=== PATIENT | female | born 1955 | race Caucasian/White ===

== ENCOUNTER → 2017-09-16 | Outpatient (CLI) | payer BC ==
--- NOTE | 2017-09-17 14:09 | MM ---
Reason for exam: screening (asymptomatic). Last mammogram was performed 1 year and 5 months ago. History: Patient is postmenopausal and history of other cancer. Family history of breast cancer in paternal cousin. Benign excisional biopsy of the right breast, 1979. Physical Findings: A clinical breast exam by your physician is recommended on an annual basis and results should be correlated with mammographic findings. MG 3D Screening Mammo W/Cad Bilateral CC and MLO view(s) were taken. Prior study comparison: April 15, 2016, bilateral MG screening mammo w CAD. November 30, 2014, bilateral MG screening mammo w CAD. The breast tissue is heterogeneously dense. This may lower the sensitivity of mammography. Asymmetric density far posterior central left MLO view is unchanged. No significant changes when compared with prior studies. ASSESSMENT: Negative, BI-RAD 1 RECOMMENDATION: Routine screening mammogram of both breasts in 1 year.
== END | disposition home or self-care (01) ==
LOC: RADMAMWWP 16:55
PROVIDERS: ATTEND Family Medicine
DX: Z12.31 Encounter for screening mammogram for malignant neoplasm of breast (principal)
CPT/HCPCS: 77063; 77067

== ENCOUNTER → 2017-10-28 | Outpatient (CLI) | payer BC ==
[2017-10-28 15:00] VITALS: BP 132/85; PULSE 98; RESP 18; TEMP 98.1; BMI 20.4
--- NOTE | 2017-10-28 16:24 | P.HPOB ---
History of Present Illness H&P Date: 10/28/17 Chief Complaint: The patient is here for her routine gynecologic exam. This is a 62-year-old with an LMP of 2009. It is been about 3 years since her last pelvic exam. She previously saw Dr. Cid. She states she has noticed infrequent lower abdominal pains over the past few months. She describes them as a dull ache. They can last up to a half a day and seems to be below the umbilicus. The pains do not seem to be associated with any activity. She is otherwise without complaints and denies any postmenopausal bleeding. Review of Systems She is getting about 7 pounds over the last 2 years. She denies respiratory work G.I. problems. Cardiac: occasional palpitations and she does have an appointment at [facility] for evaluation. 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 She was also told she may have uterine fibroids. She has had 3 vaginal deliveries and 1 spontaneous . History of Any Multi-Drug Resistant Organisms: None Reported Past Surgical History: Orthopedic Surgery (Wrist surgery), Tonsillectomy Additional Past Surgical History / Comment(s): wrist. 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 - Past Family History Father Family Medical History: Myocardial Infarction ([place]) Mother Family Medical History: No Reported History Medications and Allergies Home Medications Medication Instructions Recorded Confirmed Type Calcium Carbonate/Vitamin D3 1 each PO DAILY 03/09/15 10/28/17 History [Calcium 600 + Vit D Tablet] Multivitamins, Thera [Theragran] 1 each PO DAILY 03/09/15 10/28/17 History Ramipril [Ramipril] 5 mg PO QAM 03/09/15 10/28/17 History Vit A/Vit C/Vit E/Zinc/Copper 1 cap PO DAILY 09/03/15 04/24/18 History [ICAPS SOFTGEL] Allergies Allergy/AdvReac Type Severity Reaction Status Date / Time Sulfa (Sulfonamide Allergy Unknown Verified 10/28/17 14:52 Antibiotics) Exam - Vital Signs Vital signs: Vital Signs Temp Pulse Resp BP 10/28/17 14:52 98.1 F 98 18 132/85 Intake and Output 10/28/17 10/28/17 10/28/17 06:59 14:59 22:59 Other: Weight 53.977 kg Height 5'4", BMI 20.4. This is a well-developed well-nourished white female who is alert and oriented times 3 in no acute distress. HEENT: Within normal limits. NECK: Supple without mass or thyromegaly. CHEST AND LUNGS: Clear to auscultation. HEART: Regular rate and rhythm. BREASTS: Are without mass or discharge. AXILLARY EXAM: Negative for adenopathy. BACK: Negative for CVA tenderness. ABDOMEN: Soft, nontender, without palpable masses. PELVIC EXAM: Normal external genitalia with mild atrophy. Cervix and vagina appear normal with mild to moderate atrophy. The cervix is somewhat stenotic. There is no unusual discharge. There is no evidence of prolapse. The uterus is midposition, nongravid size and nontender. There are no palpable adnexal masses or tenderness. RECTAL EXAM: rectovaginal exam is negative for mass or tenderness and is negative for occult blood. EXTREMITIES: Nontender. IMPRESSION: 1. 62-year-old menopausal female with normal gynecologic exam. 2. Intermittent low abdominal pains near the umbilicus Without any significant physical findings at this time. PLAN: 1. Pap smear was performed. 2. Self breast awareness was discussed. 3. She had a normal mammogram on 09/16/2017 which was negative. She will repeat this in one year. 4. Pelvic ultrasound will be scheduled. 5. Osteoporosis prevention was discussed. She states she is due for a bone density test in order slip was given the patient for this 6. She will return in one year.
== END | disposition home or self-care (01) ==
LOC: WWCWWP 14:03
PROVIDERS: ATTEND Obstetrics & Gynecology
DX: Z53.9 Procedure and treatment not carried out, unspecified reason (principal)

== ENCOUNTER → 2017-11-20 | Outpatient (CLI) | payer BC ==
[2017-11-20 11:33] LABS: HCT 36.1 % (34.0-46.0); HGB 12.3 gm/dL (11.4-16.0); MCH 30.9 pg (25.0-35.0); MCHC 34.1 g/dL (31.0-37.0); MCV 90.7 fL (80.0-100.0); Mean Platelet Volume 6.8; Platelet Count 256 k/uL (150-450); RBC 3.98 m/uL (3.80-5.40); RDW 13.5 % (11.5-15.5); WBC 5.4 k/uL (3.8-10.6)
[2017-11-20 11:56] LABS: ALT 49 U/L (9-52); AST 48 U/L (14-36); Cholesterol 170 mg/dL (<200); HDL Cholesterol 90 mg/dL (40-60); LDL Cholesterol,Calculated 65 mg/dL (0-99); Triglycerides 73 mg/dL (<150)
== END | disposition home or self-care (01) ==
LOC: LABWHC1 10:46
PROVIDERS: ATTEND Internal Medicine Interventional Cardiology
DX: E78.2 Mixed hyperlipidemia (principal); D64.9 Anemia, unspecified
CPT/HCPCS: 36415; 80061; 84450; 84460; 85027

== ENCOUNTER → 2017-11-20 | Outpatient (CLI) | payer BC ==
--- NOTE | 2017-11-20 11:15 | US ---
EXAMINATION TYPE: US pelvic complete DATE OF EXAM: 11/20/2017 COMPARISON: NONE CLINICAL HISTORY: R10 ABD PAIN/Z78.0 POSTMENO STATUS ASYMPTOMATIC. Right lower quadrant pain on and o ff TECHNIQUE: . Transabdominal sonographic images of the pelvis were acquired. Date of LMP: About 9 years ago EXAM MEASUREMENTS: Uterus: 5.5 x 2.2 x 3.0 cm Endometrial Stripe: 0.3 cm Right Ovary: 1.5 x 1.0 x 1.4 cm Left Ovary: 1.6 x 0.8 x 1.3 cm 1. Uterus: Anteverted wnl 2. Endometrium: wnl 3. Right Ovary: wnl 4. Left Ovary: wnl 5. Bilateral Adnexa: wnl 6. Posterior cul-de-sac: wnl Transabdominal ultrasound evaluation of pelvis shows no suspicious abnormality. IMPRESSION: As above.
--- NOTE | 2017-11-21 10:20 | BD ---
EXAMINATION TYPE: Axial Bone Density DATE OF EXAM: 11/20/2017 COMPARISON: NONE CLINICAL HISTORY: Postmenopausal female. Osteoporosis screening. Height: 63.5 Weight: 119 FRAX RISK QUESTIONS: Alcohol (3 or more units per day): no Family History (Parent hip fracture): mother Glucocorticoids (More than 3mos): no (Ex: prednisone, prednisolone, methylprednisolone, dexamethasone, and hydrocortisone). History of Fracture in Adulthood: yes, pelvis Secondary Osteoporosis: 1. Type 1 Diabetes: no 2. Hyperthyroidism: no 3. Menopause before 45: no 4. Malnutrition: no 5. Chronic liver disease: no Rheumatoid Arthritis: no Current Tobacco Use: no RISK FACTORS HISTORY OF: Surgery to Surgery Wrist (left): yes When: childhood injury -non fracture Family History of Osteoporosis: yes, mother Active: yes Diet low in dairy products/other sources of calcium: no Postmenopausal woman: yes Take estrogen and/or progesterone medications: no Lost more than 2 inches in height since high school: no Frequent falls: no Poor Health: no Hyperparathyroidism: no Adrenal Insufficiency: no MEDICATIONS: Prednisone or other steroids: no Thyroid Medications: no Osteoporosis Medications: not now Which medication: Fosamax & another How Long: unsure Additional Medications: blood pressure meds, cholesterol meds Additional History: myotonic dystrophy, left hip "nerve pain" x 2 months EXAM MEASUREMENTS: Bone mineral densitometry was performed using the [employer]. Bone mineral density as measured about the Lumbar spine is: ----- L1-L4(G/cm2): 1.285 T Score Values are as follows: ----- L2: 0.4 ----- L3: 1.3 ----- L4: 1.0 ----- L1-L4: 0.9 Bone mineral density has: Increased 4.0% since study of: 10/24/2011 Bone mineral density about the R hip (g/cm2): 0.941 Bone mineral density about the L hip (g/cm2): 0.896 T Score values are as follows: -----R Neck: -0.7 -----L Neck: -1.0 -----R Total: -0.7 -----L Total: -0.7 Bone mineral density has: Decreased -4.0% since study of: 10/24/2011 IMPRESSION: Normal (Values between +1 and -1 indicate normal bone mass). Values approach osteopenia with regards to the left femur. Consider repeating this study in 5 years or sooner if there is some new clinical indication. NOTE: T-SCORE=SD OF THE YOUNG ADULT MEAN.
== END | disposition home or self-care (01) ==
LOC: RADUSWWP 09:35
PROVIDERS: ATTEND Obstetrics & Gynecology
DX: R10.13 Epigastric pain (principal); M85.852 Other specified disorders of bone density and structure, left thigh; Z78.0 Asymptomatic menopausal state
CPT/HCPCS: 76856; 77080

== ENCOUNTER → 2018-10-28 | Outpatient (CLI) | payer MEDICARE, OTHER ==
[2018-10-28 11:40] VITALS: BP 122/76; PULSE 64; RESP 16; TEMP 98.1; BMI 21.2
--- NOTE | 2018-10-28 12:46 | P.HPOB ---
History of Present Illness H&P Date: 10/28/18 Chief Complaint: The patient is here for her routine gynecologic exam and ma mmogram. This is a 63-year-old with an LMP of 2009. The patient has pelvic and urinary complaints. She states over the last few months she has noticed urinary frequency and smaller amounts of urine when she avoids. She typically gets up 2 times per night to urinate. She is also feeling and achy pain in the area of the bladder which seems to be greater after voiding. She has taken cranberry supplements which has helped slightly. She also has been experiencing abdominal bloating. She was treated for a UTI about 5 months ago. She does experiencing occasional small urinary leakage with coughing. Review of Systems She has been about 4 pounds over the last year. She denies respiratory, cardiac, or G.I. problems. : see the HPI. 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 She was also told she may have uterine fibroids. She has had 3 vaginal deliveries and 1 spontaneous . History of Any Multi-Drug Resistant Organisms: None Reported Past Surgical History: Orthopedic Surgery, Tonsillectomy Additional Past Surgical History / Comment(s): wrist. 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 - Past Family History Father Family Medical History: Myocardial Infarction ([place]) Mother Family Medical History: No Reported History Medications and Allergies Home Medications Medication Instructions Recorded Confirmed Type Calcium Carbonate/Vitamin D3 1 each PO DAILY 03/09/15 10/28/18 History [Calcium 600 + Vit D Tablet] Multivitamins, Thera [Theragran] 1 each PO DAILY 03/09/15 10/28/18 History Ramipril 5 mg PO QAM 03/09/15 10/28/18 History Vit A/Vit C/Vit E/Zinc/Copper 1 cap PO DAILY 03/09/15 10/28/18 History [ICAPS SOFTGEL] Atorvastatin [Lipitor] 40 mg PO HS 10/28/18 10/28/18 History Allergies Allergy/AdvReac Type Severity Reaction Status Date / Time Sulfa (Sulfonamide Allergy Unknown Verified 10/28/17 14:52 Antibiotics) Exam Vital Signs Temp Pulse Resp BP Pulse Ox 10/28/18 11:00 98.1 F 64 16 122/76 96 Intake and Output 10/27/18 10/28/18 10/28/18 22:59 06:59 14:59 Other: Weight 56.245 kg Height 5'4", weight 124 pounds, BMI 21.3. This is a well-developed well-nourished white female who is alert and oriented times 3 in no acute distress. HEENT: Within normal limits. NECK: Supple without mass or thyromegaly. CHEST AND LUNGS: Clear to auscultation. HEART: Regular rate and rhythm. BREASTS: Are without mass or discharge. AXILLARY EXAM: Negative for adenopathy. BACK: Negative for CVA tenderness. ABDOMEN: Soft, there is mild suprapubic tenderness with no rebound tenderness, without palpable masses. The abdomen is minimally distended. PELVIC EXAM: Normal external genitalia with mild atrophy. Cervix and vagina appear normal with mild atrophy. There is no unusual discharge. There is no evidence of prolapse. The uterus is midposition, nongravid size and nontender. There are no palpable adnexal masses or tenderness. There is mild tenderness in the area of the bladder. She states palpating the bladder makes her feel like she has to void even though she did not feel like she had devoid just prior to the exam. RECTAL EXAM: rectovaginal exam is negative for mass or tenderness and is negative for occult blood. EXTREMITIES: Nontender. IMPRESSION: 1. 63-year-old menopausal female with urinary frequency and intermittent urinary urgency. 2. Pelvic pain in the area of the bladder. Possible UTI. 3. Abdominal bloating. PLAN: 1. Pap smear was deferred since she had a normal one on 10/28/2017. 2. Self breast awareness was discussed with the patient. 3. Screening mammogram will be done today. 4. The patient will be scheduled for a pelvic ultrasound. 5. Clean catch urinalysis and culture with sensitivity will be obtained today. 6. The patient had a normal bone density test done on 11/20/2017 and we will plan on repeating this approximately 5 years after her last one. 7. I have recommended that she tried to empty her bladder as completely as possible with relaxation and giving herself more time to avoid. She will try to avoid bearing down to empty the bladder. 7.She was advised to return in one year for her annual well woman exam.
[2018-10-28 14:12] LABS: Appearance,Urine Clear (Clear); Bilirubin,Urine Negative (Negative); Blood,Urine Negative (Negative); Color,Urine Yellow; Glucose,Urine (UA) Negative (Negative); Ketones,Urine Negative (Negative); Leukocyte Esterase,Urine Negative (Negative); Nitrite,Urine Negative (Negative); Protein,Urine Negative (Negative); Specific Gravity,Urine 1.007 (1.001-1.035); Urobilinogen,Urine <2.0 mg/dL (<2.0)
--- NOTE | 2018-10-30 08:25 | MM ---
Reason for exam: screening (asymptomatic). Last mammogram was performed 1 year and 1 month ago. History: Patient is postmenopausal and history of other cancer. Family history of breast cancer in paternal cousin. Benign excisional biopsy of the right breast, 1979. Physical Findings: A clinical breast exam by your physician is recommended on an annual basis and results should be correlated with mammographic findings. MG 3D Screening Mammo W/Cad Bilateral CC and MLO view(s) were taken. Prior study comparison: September 16, 2017, bilateral MG 3d screening mammo w/cad. April 15, 2016, bilateral MG screening mammo w CAD. The breast tissue is heterogeneously dense. This may lower the sensitivity of mammography. No significant changes when compared with prior studies. ASSESSMENT: Negative, BI-RAD 1 RECOMMENDATION: Routine screening mammogram of both breasts in 1 year.
--- NOTE | 2018-11-03 17:59 | P.PN ---
Progress Note - Text Progress Note Date: 11/03/18 OUTPATIENT FOLLOW-UP NOTE TEST(S)/RESULTS: test results from 10/28/2018 include benign mammogram and negative you a with urine culture showing small normal genital sharon contamination. METHOD OF NOTIFICATION: she was notified by phone. PATIENT COMMENTS: DIAGNOSIS: urine negative for infection and benign mammogram. DISCUSSION: the patient is planning on having her pelvic ultrasound done in [facility]. PLAN: await pelvic ultrasound. She will also return in one year and PRN.
== END | disposition home or self-care (01) ==
LOC: WWCWWP 10:50
PROVIDERS: ATTEND Obstetrics & Gynecology
DX: Z12.31 Encounter for screening mammogram for malignant neoplasm of breast (principal); R35.0 Frequency of micturition; R10.2 Pelvic and perineal pain
CPT/HCPCS: 77063; 77067; 81003; 87086

== ENCOUNTER → 2018-11-10 | Outpatient (CLI) | payer MEDICARE, OTHER ==
--- NOTE | 2018-11-10 16:32 | US ---
EXAMINATION TYPE: US pelvic complete DATE OF EXAM: 11/10/2018 COMPARISON: US CLINICAL HISTORY: R10.2 Pelvic and perineal pain. Patient c/o pelvic bloating TECHNIQUE: Transvaginal (TV) and Transabdominal (TA) . Transabdominal sonographic images of the pel vis were acquired. Transvaginal sonographic images were medically necessary to better assess the fol lowing anatomy: ovaries and endometrium Date of LMP: approximately age 63 EXAM MEASUREMENTS: Uterus: 6.3 x 3.7 x 2.5 cm Endometrial Stripe: 1.2 cm Right Ovary: not seen TA or TV US Left Ovary: 3.2 x 2.0 x 1.4 cm US exam is technically limited for adnexal assessment due to overlying bowel gas. 1. Uterus: Anteverted; multiple small Nabothian cysts in cervix 2. Endometrium: abnormally thickened with cyst seen within = 0.4 x 0.4 x 0.3cm 3. Right Ovary: not seen 4. Left Ovary: small follicles and better seen TA US 5. Bilateral Adnexa: bowel peristalsing noted 6. Posterior cul-de-sac: wnl IMPRESSION: 1. Thickening of the endometrium currently measuring 1.2 cm.
== END | disposition home or self-care (01) ==
LOC: RADUSWWP 10:57
PROVIDERS: ATTEND Obstetrics & Gynecology
DX: R93.89 Abnormal findings on diagnostic imaging of other specified body structures (principal); R14.0 Abdominal distension (gaseous)
CPT/HCPCS: 76830; 76856

== ENCOUNTER → 2018-11-25 | Day surgery (SDC) | payer MEDICARE, OTHER ==
[2018-11-25 12:37] VITALS: BP 117/77; PULSE 71; RESP 18; TEMP 97.3; BMI 21.2
--- NOTE | 2018-11-25 13:59 | P.PCN ---
Date of Procedure: 11/25/18 Preoperative Diagnosis: Postmenopausal endometrial thickening Postoperative Diagnosis: Same, failed endometrial biopsy Procedure(s) Performed: Endometrial biopsy(failed) Anesthesia: none Surgeon: Isauro Barth Estimated Blood Loss (ml): 0 Condition: stable Disposition: same day Indications for Procedure: This was a 63-year-old menopausal female who underwent a pelvic ultrasound on 11/10/2018 for abdominal bloating. The endometrial stripe was felt to be thickened at 1.2 cm. She denies any gross postmenopausal bleeding, however, she states she has had in intermittent slightly brownish discharge for many years. Operative Findings: The uterus is mid positioned, non-gravid size and nontender. There are no palpable adnexal masses or tenderness. The cervix appears moderately atrophic with a stenotic cervix. The endometrial biopsy instrument was unable to pass into the endometrial cavity secondary to cervical stenosis. Description of Procedure: The procedure was discussed with the patient and we reviewed possible risks and complications. All of her questions were answered. The patient was placed in the lithotomy position. A speculum was inserted into the vagina. The cervix and vagina were prepped with Betadine solution. And Allys Clamp was used to grasp the anterior lip of the cervix. The 3 mm endometrial biopsy instrument could not pass through the cervical os secondary to cervical stenosis. A cyto-brush could be inserted into the cervical os, but without active dilation the endometrial biopsy instrument could not be inserted. After several attempts with different clamp locations, the procedure was aborted. I didn't want to use undue force which could increase the risk for complications. The patient tolerated the procedure attempt. The postprocedure blood pressure was 136/79, pulse 76, temperature 98.1. Pulse oximeter 98% respiratory rate 18. The pelvic ultrasounds from one year ago (ET 3mm) and 11/10/2018 (ET 12 mm) were reviewed with Dr. Sorto, the radiologist. He was not sure that the most recent ultrasound was accurately measuring the endometrial stripe and suggested additional ultrasound views. This will be done today. Is it seems that there is significant endometrial thickening by the additional ultrasound views today, she will be referred for possible hysteroscopy and D&C.
--- NOTE | 2018-11-25 14:14 | P.PN ---
Progress Note - Text Progress Note Date: 11/25/18 Additional pelvic ultrasound views were obtained today. The preliminary report indicates that the endometrium does not appear thickened and may have been artifact from a small fibroid. This was discussed with the patient. No additional testing will be needed at this time. She was instructed to call if she has any problems including postmenopausal bleeding or unusual pain. We will await the addendum ultrasound report.
== END ==
LOC: WWCWWP 12:25
PROVIDERS: ATTEND Obstetrics & Gynecology
DX: Z53.9 Procedure and treatment not carried out, unspecified reason (principal)

== ENCOUNTER → 2020-06-27 | Outpatient (CLI) | payer MEDICARE, OTHER ==
[2020-06-27 14:45] VITALS: BP 108/72; PULSE 77; RESP 18; TEMP 98
--- NOTE | 2020-06-27 18:03 | P.HPOB ---
History of Present Illness H&P Date: 06/27/20 Chief Complaint: The patient is here for her routine gynecologic exam and ma mmogram. This is a 64-year-old 013 with an LMP of 2009. The patient states she has been having GI symptoms including loose stools and bloating. She has been seeing a juice scaleman in [place]. She states she had a pelvic ultrasound done in February 2028. She states there were no significant findings. She has been experiencing rare low abdominal and pelvic pains which she states can be sharp. She states these have occurred about 3 or 4 times per year. The pain can be severe when it does happen. She is currently not experiencing this pain. She denies any urinary tract infection symptoms. Review of Systems She has lost about 6 pounds over the past year. She denies respiratory or cardiac problems. GI: Intermittent loose stools and abdominal bloating. She has been seeing a juice scaleman for this. 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 She was also told she may have uterine fibroids. She has had 3 vaginal deliveries and 1 spontaneous . History of Any Multi-Drug Resistant Organisms: None Reported Past Surgical History: Orthopedic Surgery, Tonsillectomy Additional Past Surgical History / Comment(s): wrist. 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 - Past Family History Father Family Medical History: Myocardial Infarction ([place]) Mother Family Medical History: No Reported History Medications and Allergies Home Medications Medication Instructions Recorded Confirmed Type Calcium Carbonate/Vitamin D3 1 each PO DAILY 03/09/15 06/27/20 History [Calcium 600 + Vit D Tablet] Multivitamins, Thera [Theragran] 1 each PO DAILY 03/09/15 06/27/20 History Ramipril 5 mg PO QAM 03/09/15 06/27/20 History Vit A/Vit C/Vit E/Zinc/Copper 1 cap PO DAILY 03/09/15 06/27/20 History [ICAPS SOFTGEL] Atorvastatin [Lipitor] 40 mg PO HS 10/28/18 06/27/20 History Allergies Allergy/AdvReac Type Severity Reaction Status Date / Time Sulfa (Sulfonamide Allergy Unknown Verified 06/27/20 14:33 Antibiotics) Exam Vital Signs Temp Pulse Resp BP Pulse Ox 06/27/20 14:40 98.0 F 77 18 108/72 97 Intake and Output 06/27/20 06/27/20 06/27/20 06:59 14:59 22:59 Other: Weight 53.524 kg Height 5 feet 4 inches, weight 118 pounds, BMI 20.3. This is a well-developed well-nourished white female who is alert and oriented times 3 in no acute distress. HEENT: Within normal limits. NECK: Supple without mass or thyromegaly. CHEST AND LUNGS: Clear to auscultation. HEART: Regular rate and rhythm. BREASTS: Are without mass or discharge. AXILLARY EXAM: Negative for adenopathy. BACK: Negative for CVA tenderness. ABDOMEN: Soft, nontender, without palpable masses. PELVIC EXAM: Normal external genitalia with mild atrophy. Cervix and vagina appear normal with mild atrophy. There is no unusual discharge. There is no evidence of prolapse. The uterus is midposition, nongravid size and nontender. There are no palpable adnexal masses or tenderness. RECTAL EXAM: Rectovaginal exam is negative for mass or tenderness and is negative for occult blood. EXTREMITIES: Nontender. IMPRESSION: 1. 64-year-old menopausal female with normal gynecologic exam. 2. Abdominal bloating with rare low abdominal pains with no significant physical findings at this time. She states she had a pelvic ultrasound done by her GI doctor for these and other GI symptoms in February of this year. Incomplete database. 3. Her abdominal symptoms most likely is GI in nature, especially if she had a negative ultrasound in February. PLAN: 1. Pap smear cotest was performed. 2. Self breast awareness was discussed with the patient. 3. Screening mammogram was done today. 4. We will obtain records of her pelvic ultrasound done in February of this year by her GI doctor in [place]. If the ultrasound was not a pelvic ultrasound and if it did not evaluate the gynecologic organs, consider getting a pelvic ultrasound. 5. Osteoporosis prevention was discussed. I have stressed the importance of adequate calcium, vitamin D and regular exercise. Recommended amounts of calcium and vitamin D were also discussed. 6. She was advised to return in one year for her annual well woman exam and as needed.
--- NOTE | 2020-06-28 11:56 | MM ---
Reason for exam: screening (asymptomatic). Last mammogram was performed 1 year and 8 months ago. History: Patient is postmenopausal and history of other cancer. Family history of breast cancer in paternal cousin. Benign excisional biopsy of the right breast, 1979. Physical Findings: A clinical breast exam by your physician is recommended on an annual basis and results should be correlated with mammographic findings. MG 3D Screening Mammo W/Cad Bilateral CC and MLO view(s) were taken. Prior study comparison: October 28, 2018, bilateral MG 3d screening mammo w/cad. September 16, 2017, bilateral MG 3d screening mammo w/cad. The breast tissue is heterogeneously dense. This may lower the sensitivity of mammography. There is no discrete abnormality. No significant changes when compared with prior studies. ASSESSMENT: Negative, BI-RAD 1 RECOMMENDATION: Routine screening mammogram of both breasts in 1 year.
--- NOTE | 2020-07-05 09:39 | P.PN ---
Progress Note - Text Progress Note Date: 07/05/20 OUTPATIENT FOLLOW-UP NOTE TEST(S)/RESULTS: test results from 06/27/2020 include negative, negative Pap smear cotest and benign mammogram. METHOD OF NOTIFICATION: the patient was notified by phone. PATIENT COMMENTS: the patient is happy to hear these results. The patient states previous Pap smears were done by Dr. Cid. DIAGNOSIS: negative Pap smear cotest and benign mammogram. DISCUSSION: I will review Dr. Cid's chart to determine if she has had adequate screening to possibly discontinue Pap smears. I have received the pelvic ultrasound done on 11/24/2019 at [facility] as ordered by her GI specialist. The pelvic ultrasound was unremarkable with an endometrial thickness of 2 mm and no evidence of adnexal masses. This was also reviewed with the patient. At this time I do not believe her infrequent abdominal pains are gynecologic in nature and she will follow up with her GI specialist in [place] for this. She states she had some type of scan of her abdomen as well in the past. PLAN: the patient is to return in one year for her annual well woman exam. She will follow up with her GI specialist for her abdominal pains.
== END | disposition home or self-care (01) ==
LOC: WWCWWP 13:57
PROVIDERS: ATTEND Obstetrics & Gynecology
DX: Z12.31 Encounter for screening mammogram for malignant neoplasm of breast (principal)
CPT/HCPCS: 77063; 77067

== ENCOUNTER → 2022-05-14 | Outpatient (CLI) | payer MEDICARE, OTHER ==
[2022-05-14 14:10] VITALS: BP 145/85; PULSE 76; RESP 17; TEMP 98.3
--- NOTE | 2022-05-14 15:01 | P.HPOB ---
History of Present Illness H&P Date: 05/14/22 Chief Complaint: The patient is here for her routine gynecologic exam. This is a 66-year-old 013 with an LMP of 2009. The patient states she has had a long history of intermittent abdominal pains that occur a few times per year. She believes they are occurring more often. In the past it was about 4 times year and now she thinks it is about 8 times a year. The pains tended to be in the low abdomen and can be severe at times with a burning type of sensation. She was told by her primary care doctor that she has blood in the urine and was advised to see a urologist. She has not yet seen the urologist for this. The episodes that she has continued typically last one or 2 hours. She has a bowel movement this seems to help with the discomfort. She also notices that voiding can help a little as well. She has experienced some urinary urgency even after voiding and occasional dysuria. She states she was not treated for a UTI when she was found to have blood in her urine. She previously saw a environmental engineering technician in [place] for these symptoms and he did not feel that it was GI in nature. Right now she is experiencing bladder discomfort, but not severe burning abdominal discomfort that she has had in the past. Review of Systems She has gained about 5 pounds over the past 2 years. She denies respiratory or cardiac problems. GI: See the HPI. Moving her bowels seems to help with the abdominal discomfort when it is there. Lately she has been moving her bowels less than once a day. 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 Macular hole. 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 She was also told she may have uterine fibroids. She has had 3 vaginal deliveries and 1 spontaneous . History of Any Multi-Drug Resistant Organisms: None Reported Past Surgical History: Orthopedic Surgery, Tonsillectomy Additional Past Surgical History / Comment(s): wrist. 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 - Past Family History Father Family Medical History: Myocardial Infarction (VT) Mother Family Medical History: No Reported History Medications and Allergies Home Medications Medication Instructions Recorded Confirmed Type Calcium Carbonate/Vitamin D3 1 each PO DAILY 03/09/15 05/14/22 History [Calcium 600 + Vit D Tablet] Multivitamins, Thera [Theragran] 1 each PO DAILY 03/09/15 05/14/22 History Ramipril 5 mg PO QAM 03/09/15 05/14/22 History Atorvastatin [Lipitor] 40 mg PO HS 10/28/18 05/14/22 History Allergies Allergy/AdvReac Type Severity Reaction Status Date / Time Sulfa (Sulfonamide Allergy Unknown Verified 05/14/22 13:56 Antibiotics) Exam Vital Signs Temp Pulse Resp BP Pulse Ox 05/14/22 13:57 98.3 F 76 17 145/85 99 Intake and Output 05/13/22 05/14/22 05/14/22 22:59 06:59 14:59 Other: Weight 55.792 kg Height 5 feet 4 inches, weight 123 pounds, BMI 21.1. This is a well-developed well-nourished white female who is alert and oriented times 3 in no acute distress. HEENT: Within normal limits. NECK: Supple without mass or thyromegaly. CHEST AND LUNGS: Clear to auscultation. HEART: Regular rate and rhythm. BREASTS: Are without mass or discharge. AXILLARY EXAM: Negative for adenopathy. BACK: Negative for CVA tenderness. ABDOMEN: Soft, nontender, without palpable masses. PELVIC EXAM: Normal external genitalia with mild to moderate atrophy. Cervix and vagina appear normal with mild atrophy. There is no unusual discharge. There is no evidence of prolapse. The uterus is midposition, nongravid size and nontender. There are no palpable adnexal masses or tenderness. RECTAL EXAM: rectovaginal exam is negative for mass or tenderness and is negative for occult blood. EXTREMITIES: Nontender. IMPRESSION: 1. 66-year-old menopausal female with intermittent low abdominal and pelvic pains without significant physical findings at this time. 2. Urinary symptoms consisting of occasional urinary urgency, occasional urinary dysuria and bladder discomfort 3. History of hematuria per the patient. PLAN: 1. Pap smears have been discontinued. 2. Self breast awareness was discussed with the patient. We have also discussed symptoms associated with inflammatory breast cancer. 3. Clean catch midstream urine will be obtained for a UA and culture with sensitivity. 4. Pelvic ultrasound was recommended. The order slip was given to the patient for this. If the ultrasound is unremarkable for a gynecologic cause for the pains, she will speak with her PCP for possible additional testing such as CT scan of the abdomen and pelvis. 5. We have discussed how her abdominal symptoms may not be gynecologic in nature. If the pelvic ultrasound is unremarkable. I will be more inclined to believe that her pains are more GI in nature based on her description. 6. I have recommended that she keep her appointment with the urologist that her PCP is referring her to since the patient was told she was found to have blood in her urine. 7. She was advised to return in one year for her annual well woman exam and as needed.
[2022-05-14 23:24] LABS: Appearance,Urine Clear (Clear); Bilirubin,Urine Negative (Negative); Blood,Urine Negative (Negative); Color,Urine Dark Yellow (Yellow); Ketones,Urine Negative (Negative); Nitrite,Urine Negative (Negative); PH, Urine 5.5 (5.0-8.0); Specific Gravity,Urine 1.017 (1.001-1.030); Urobilinogen,Urine 0.2 (0.2,1.0)
[2022-05-15 00:10] LABS: Bacteria,Urine None Seen /HPF (None Seen); Calcium Oxalate Crystals,Urine Present /LPF (None Seen)
== END ==
LOC: WWCWWP 13:48
PROVIDERS: ATTEND Obstetrics & Gynecology
DX: Z01.419 Encounter for gynecological examination (general) (routine) without abnormal findings (principal); Z88.2 Allergy status to sulfonamides; Z87.891 Personal history of nicotine dependence
CPT/HCPCS: 81001; 87086

== ENCOUNTER → 2022-05-15 | Outpatient (CLI) | payer MEDICARE, OTHER ==
--- NOTE | 2022-05-15 09:49 | US ---
EXAMINATION TYPE: US pelvic complete DATE OF EXAM: 05/15/2022 COMPARISON: NONE CLINICAL HISTORY: R10.32 L LOWER QUADRANT R10.2 PELVIC/PERINEAL PAIN. LLQ pain on and off, on and off pelvic pain since 2018 per other US studies, no vaginal bleeding or other symptoms TECHNIQUE: TA. Transabdominal sonographic images of the pelvis were acquired. Date of LMP: 3 years ago EXAM MEASUREMENTS: Uterus: 5.6 x 3.8 x 2.2 cm Endometrial Stripe: 0.2 cm Right Ovary: not seen Left Ovary: not seen 1. Uterus: Anteverted wnl 2. Endometrium: wnl 3. Right Ovary: not seen due to atrophy and or bowel gas 4. Left Ovary: not seen due to atrophy and or bowel gas 5. Bilateral Adnexa: wnl 6. Posterior cul-de-sac: wnl Heterogeneous anteverted uterus. No free fluid. Poorly visualized endometrial stripe presumed not thi ckened. No adnexal masses. Ovaries not distinctly seen. IMPRESSION: No suspicious adnexal masses noted.
--- NOTE | 2022-05-15 14:09 | P.PN ---
Progress Note - Text Progress Note Date: 05/15/22 OUTPATIENT FOLLOW-UP NOTE TEST(S)/RESULTS: Test results from 05/14/2022 include a urinalysis which showed dark urine and trace leukocyte Esterase with 0-2 red blood cells and presence of calcium oxalate crystals. Pelvic ultrasound done today on 05/15/2022 was unremarkable. METHOD OF NOTIFICATION: A message with these results was left on the patient's voicemail. PATIENT COMMENTS: DIAGNOSIS: Unremarkable pelvic ultrasound. Urinalysis not showing definite infection DISCUSSION: Await urine culture. The patient states her primary care physician recommended that she see a urologist for hematuria that was noted in previous testing. PLAN: As above.
== END | disposition home or self-care (01) ==
LOC: RADUSWWP 08:53
PROVIDERS: ATTEND Obstetrics & Gynecology
DX: R10.32 Left lower quadrant pain (principal); R10.2 Pelvic and perineal pain
CPT/HCPCS: 76856